=== PATIENT | male | born 1955 | race Caucasian/White ===

== ENCOUNTER 2019-08-15 10:58 | Inpatient (IN) | payer OTHER, SELFPAY ==
[2019-08-15] VITALS (15 sets, daily range): BP systolic 116–179; BP diastolic 49–91; PULSE 33–53; RESP 16–23; TEMP 36.9; O2SAT 91–97; BMI 31.6
--- NOTE | 2019-08-15 11:07 | XR_ITS ---
WS: [id number] PORTABLE CHEST HISTORY: cough COMPARISON: 08/15/2014 Lungs are clear and well expanded. No pleural effusion or pneumothorax. Cardiac size: Mildly enlarged cardiac silhouette. Mediastinum/Aorta: Mildly ectatic aorta. No osseous abnormality seen. XR/XR chest 1V portable [id number] IMPRESSION: Mild cardiomegaly. No pneumonia.
--- NOTE | 2019-08-15 11:08 | ED_ITS ---
Entered by Luz Root, acting as scribe for BonnyMaura Manju HPI - Arrhythmia/Palpitations General: Chief Complaint: General Medical Stated Complaint: LOW HR Time Seen by Provider: 08/15/19 11:06 Source: patient, RN notes reviewed and other (PCP call) Mode of arrival: ambulatory Limitations: no limitations History of Present Illness: HPI narrative: 64 yo male presents to ED with bradycardia. He had a visit with his PCP (Dr Crespo) last week because his blood pressure was elevated and he had shortness of breath. He returned today for a follow up and was sent here due to bradycardia and an irregular heart rate. The patient said takes something for anxiety and dopamine to help him sleep. For past medical history, he said last year he had his Achilles tendon reattached and has had a broken leg five years ago. He said he drinks some but does not smoke. Family history: his dad had cancer and high blood pressure. He said his dad about patient's current age. MD complaint: irregular heart beat Onset (ago): day(s) (5) Duration: constant Severity: severe Context: awoke with symptoms Arrhythmia history: other (none) Associated symptoms: Reports short of breath; Deny diaphoresis, nausea, pre-syncope, syncope or vomiting Treatments prior to arrival: other (none) Review of Systems General: Reports: other (negative unless marked) Const: Denies: fever, chills, body aches, fatigue, malaise or diaphoresis Eyes: Denies: change in vision or blurry vision ENMT: Denies: throat pain, painful swallowing, hoarseness, ear pain, ear discharge, Change in hearing or nasal discharge Card: Denies: chest pain, syncope, pre-syncope, shortness of breath on exertion or shortness of breath when lying down Resp: Reports: shortness of breath; Denies: productive cough, non-productive cough, wheezing, coughing up blood or chest congestion GI: Denies: abdominal pain, nausea, vomiting, vomiting blood, coffee grounds in vomit, diarrhea, constipation, cramping, blood in stool or black tarry stool : Denies: flank pain, difficulty urinating, painful urination, urinary frequency, urinary urgency, decreased urine ouput, urinary incontinence or blood in urine Musc: Denies: neck pain, back pain, extremity pain, extremity swelling, joint pain, joint swelling, joint warmth or joint stiffness Skin/Breast: Denies: rash, skin tenderness or yellow skin Neuro: Denies: headache, numbness in extremities, weakness in extremities, changes in sensation, lack of coordination, difficulty walking, dizziness, vertigo or confusion Endo: Denies: excessive thirst, tired all the time, cold intolerance, excessive sweating, flushing or hot flashes Fili/Lymph: Denies: easy bruising, easy bleeding, petechiae or enlarged lymph nodes All/Imm: Denies: hives, throat swelling, tongue swelling, facial swelling or acute wheezing PFSH ED PFSH: Social History Smoking and tobacco status: never smoked Physical Exam Const: COMMON NORMALS: no apparent distress, oriented x3, no limitations, healthy appearing and well nourished EXAM LIMITATIONS: no altered mental status GENERAL APPEARANCE: cooperative, well kempt and well developed ORIENTATION/CONSCIOUSNESS: Yes awake HENMT: COMMON NORMALS: normocephalic, head/scalp atraumatic, hearing grossly normal bilaterally, external ears normal, EAC's normal, external nose normal and moist oral mucous membranes HEAD & SCALP: normal to inspection, normocephalic and atraumatic FACE & SINUS: normal facial exam and face symmetric NOSE: external nose normal and nares normal EXTERNAL EAR: Yes external ears normal EXTERNAL AUDITORY CANAL: EAC's normal MOUTH: oral and palatal mucosa normal and tongue normal Eye: COMMON NORMALS: PERRL, EOMs intact bilaterally, conjunctivae normal and no scleral icterus GENERAL EYE: normal appearance of both eyes and normal light reflex CONJUNCTIVA: Yes conjunctivae normal SCLERA: sclerae normal CORNEA: Yes corneas normal PUPIL: Yes PERRL DIRECT OPHTHALMOSCOPY: Yes normal light reflex Neck/C-Spine: COMMON NORMALS: full ROM, no lymphadenopathy, supple, no m eningeal signs and no JVD GENERAL: Yes normal visual inspection and Yes trachea midline CERVICAL SPINE: Yes cervical ROM normal Chest: COMMONS NORMALS: inspection of chest normal and palpation of chest normal Resp: COMMON NORMALS: normal respiratory effort, no retractions, no use of accessory muscles and clear to auscultation bilaterally EFFORT & INSPECTION: Yes able to speak in complete sentences AUSCULTATION: clear to auscultation bilaterally Cardio: COMMON NORMALS: no JVD, S1 normal heart sound, S2 normal heart sound, no gallops, no clicks, no murmurs and no rub JUGULAR VENOUS DISTENTION: no JVD RATE: bradycardic RHYTHM: other (Irregular) HEART SOUNDS: S1 normal and S2 normal GI: COMMON NORMALS: soft to palpation, non-tender, no hepatosplenomegaly and no masses INSPECTION: Yes normal to inspection PALPATION: Yes soft and Yes no hepatosplenomegaly : COMMON NORMALS: Yes no CVA tenderness BLADDER/KIDNEY EXAM: Yes no CVA tenderness Back/Pelvis: COMMON NORMALS: no CVA tenderness, thoracic and lumbar spine normal to inspection, no thoracic nor lumbar tenderness and thoraco-lumbar ROM normal Extremity: COMMON NORMALS: normal to inspection, full ROM, normal capillary refill, no joint enlargement, no clubbing, cyanosis or edema and no calf tenderness Neuro: COMMON NORMALS: oriented x3, CN's II-XII intact bilaterally, moves all extremities, no focal motor deficits and no sensory deficits noted MENINGEAL SIGNS: Yes no meningeal signs Psych: COMMON NORMALS: mental status grossly normal, thought process normal, cooperative, affect normal, speech normal and activity/motor behavior normal APPEARANCE: Yes well kempt SPEECH: Yes normal speech THOUGHT PROCESS: normal thought process Skin: COMMON NORMALS: no rashes or lesions noted, skin turgor normal, no jaundice, no petechiae and no mottling GENERAL SKIN EXAM: no rashes or lesions noted and turgor normal Course Consultations: Consultation #1: Consulted with Dr Blue at 1130. Patient will be admitted to CSU. Time: 11:30 Vital Signs: Vital signs: Vital Signs Temperature 98.4 F 08/15/19 15:30 Pulse Rate 45 L 08/15/19 16:28 Respiratory Rate 22 H 08/15/19 16:00 Blood Pressure 171/79 08/15/19 16:00 Pulse Oximetry 97 08/15/19 16:28 MDM - Arrhythmia/Palpitations MDM Narrative: Medical decision making narrative: Arrival - with the second- degree type II AV block I called Dr. Marie who immediately presented to the ER to review the EKGs and he agrees with these findings. He agrees to evaluate for need of temporary and permanent pacemaker. In the interim we will try atropine and dopamine. The patient is asymptomatic and his blood pressure is stable currently. Differential for the symptoms are extensive including primary electrical conduction problem, acute coronary syndrome, electrolyte abnormality, amyloidosis among many others. We will continue work-up in the process is Dr. Marie determines definitive plan. Admission -patient's potassium magnesium are normal. TSH is unremarkable. I reviewed all the lab results with Dr. Marie and he is still agreeable to admission. Patient is stable on 5 mics of dopamine. Further care be dictated by Dr. Marie on an inpatient basis. Lab Data: Labs: Lab Results 08/15/19 08/15/19 08/15/19 Range/Units 11:16 11:16 11:16 WBC 5.1 (4.0-10.0) 10^3/ uL RBC 4.70 (4.1-5.3) 10^6/u L Hgb 14.8 (11.7-16.6) g/dL Hct 44.3 (42.0-52.0) % MCV 94.3 H (80-94) fL MCH 31.5 (28.0-34.0) pg MCHC 33.4 (30.0-36.0) g/dL RDW 13.1 (12.1-15.1) % Plt Count 219 (130-400) 10^3/c mm MPV 11.0 H (7.4-10.4) fL Neut % (Auto) 55.4 % Lymph % (Auto) 27.1 % [place] % (Auto) 12.3 % Eos % (Auto) 3.8 % Baso % (Auto) 1.2 % Neut # (Auto) 2.8 (1.8-7.7) 10^3/u L Lymph # (Auto) 1.4 (0.8-4.8) 10^3/u L [place] # (Auto) 0.6 (0.2-0.9) 10^3/u L Eos # (Auto) 0.2 (0.0-0.8) 10^3/u L Baso # (Auto) 0.1 (0.0-0.1) 10^3/u L Nucleated RBC % (a uto) 0 % Nucleated RBCs # 0.0 /100WBC Sodium 139 (136-145) mmol/L Potassium 4.2 (3.5-5.1) mmol/L Chloride 101 (98-107) mmol/L Carbon Dioxide 26 (22-29) mmol/L Anion Gap 16.2 (5-19) BUN 15 (8-23) mg/dL Creatinine 1.1 (0.7-1.2) mg/dL GFR Calculation 67.8 L (90-130) mL/min Glucose 97 (65-115) mg/dL Calculated Osmolal ity 284 L (285-295) mOsm/k g Calcium 9.4 (8.5-10.5) mg/dL Magnesium 2.3 (1.7-2.3) mg/dL Total Bilirubin 0.9 (0.15-1.2) mg/dL AST 22 (0-40) U/L ALT 19 (0-41) U/L Alkaline Phosphata se 111 (40-130) IU/L Creatine Kinase 125 (39-308) U/L Troponin T Baselin e 21 H (0-15) ng/mL NT-Pro-B Natriuret Pep 138 H (0-125) pg/mL Total Protein 7.0 (6.6-8.7) g/dL Albumin 4.4 (3.5-5.2) g/dL Globulin 2.6 (1.3-4.6) g/dL TSH 2.34 (0.27-4.20) uIU/ mL Urine Color (Yellow) Urine Appearance (CLEAR) Urine pH (5-7) Ur Specific Gravit y (1.005-1.030) Urine Protein (Negative) Urine Glucose (UA) (Normal) Urine Ketones (Negative) Urine Blood (Negative) Urine Nitrate (Negative) Urine Bilirubin (NEGATIVE) Urine Urobilinogen (Negative) mg/dL Ur Leukocyte Dilcia ase (Negative) Urine RBC (0-2) /hpf Urine WBC (0-5) /hpf Ur Squamous Epith Cells (0-5) Urine Bacteria (NONE) Urine Mucus 08/15/19 Range/Units 11:58 WBC (4.0-10.0) 10^3/ uL RBC (4.1-5.3) 10^6/u L Hgb (11.7-16.6) g/dL Hct (42.0-52.0) % MCV (80-94) fL MCH (28.0-34.0) pg MCHC (30.0-36.0) g/dL RDW (12.1-15.1) % Plt Count (130-400) 10^3/c mm MPV (7.4-10.4) fL Neut % (Auto) % Lymph % (Auto) % [place] % (Auto) % Eos % (Auto) % Baso % (Auto) % Neut # (Auto) (1.8-7.7) 10^3/u L Lymph # (Auto) (0.8-4.8) 10^3/u L [place] # (Auto) (0.2-0.9) 10^3/u L Eos # (Auto) (0.0-0.8) 10^3/u L Baso # (Auto) (0.0-0.1) 10^3/u L Nucleated RBC % (a uto) % Nucleated RBCs # /100WBC Sodium (136-145) mmol/L Potassium (3.5-5.1) mmol/L Chloride (98-107) mmol/L Carbon Dioxide (22-29) mmol/L Anion Gap (5-19) BUN (8-23) mg/dL Creatinine (0.7-1.2) mg/dL GFR Calculation (90-130) mL/min Glucose (65-115) mg/dL Calculated Osmolal ity (285-295) mOsm/k g Calcium (8.5-10.5) mg/dL Magnesium (1.7-2.3) mg/dL Total Bilirubin (0.15-1.2) mg/dL AST (0-40) U/L ALT (0-41) U/L Alkaline Phosphata se (40-130) IU/L Creatine Kinase (39-308) U/L Troponin T Baselin e (0-15) ng/mL NT-Pro-B Natriuret Pep (0-125) pg/mL Total Protein (6.6-8.7) g/dL Albumin (3.5-5.2) g/dL Globulin (1.3-4.6) g/dL TSH (0.27-4.20) uIU/ mL Urine Color Yellow (Yellow) Urine Appearance Clear (CLEAR) Urine pH 7 (5-7) Ur Specific Gravit y 1.005 (1.005-1.030) Urine Protein Neg (Negative) Urine Glucose (UA) Norm (Normal) Urine Ketones Negative (Negative) Urine Blood Neg (Negative) Urine Nitrate Negative (Negative) Urine Bilirubin 1+ H (NEGATIVE) Urine Urobilinogen Norm (Negative) mg/dL Ur Leukocyte Dilcia ase Negative (Negative) Urine RBC Rare (0-2) /hpf Urine WBC 0-4 H (0-5) /hpf Ur Squamous Epith Cells 0-4 H (0-5) Urine Bacteria None (NONE) Urine Mucus Trace Imaging Data^: CXR: My impression: No acute cardiopulmonary findings Radiologist's impression: [facility] [address] [place] [address] XRay Report Signed Patient: Rommel Lorenzo #: [id number] : 7Acct#:[id number] Age/Sex: 64 / MADM Date: 08/15/19 Loc: [facility]/Bed: Attending Dr: Ordering Provider/Ordering MD: Maura Draper DO Date of Service: 08/15/19 Procedure(s): XR chest 1V portable [id number] Accession Number(s): [id number] Report Number: [id number] WS: [id number] PORTABLE CHEST HISTORY: cough COMPARISON: 08/15/2014 Lungs are clear and well expanded. No pleural effusion or pneumothorax. Cardiac size: Mildly enlarged cardiac silhouette. Mediastinum/Aorta: Mildly ectatic aorta. No osseous abnormality seen. XR/XR chest 1V portable [id number] IMPRESSION: Mild cardiomegaly. No pneumonia. Dictated By:Amarilis Loco DO Signed By:Amarilis Loco DOSigned Date/Time:08/15/19 EKG Data^: EKG 1: Attestation: I personally reviewed and interpreted this EKG as follows: EKG interpretation date: 08/15/19 EKG interpretation time: 11:13 Interpretation: Sinus rhythm with first-degree AV block, right axis deviation, interventricular conduction delay, nonspecific ST and T wave changes. Other EKG comments: Chest X-Ray 08/15/19 11:07 IMPRESSION: Mild cardiomegaly. No pneumonia. EKG 2: Attestation: I personally reviewed and interpreted this EKG as follows: EKG interpretation date: 08/15/19 EKG interpretation time: 11:14 Interpretation: Sinus rhythm with second-degree AV block Mobitz 2. Interventricular conduction delay. Other EKG comments: Chest X-Ray 08/15/19 11:07 IMPRESSION: Mild cardiomegaly. No pneumonia. Discharge Plan Discharge Patient Disposition: Placed in Observation Admit Provider: Angélica Blue Clinical Impression: Mobitz type 2 second degree heart block, Bradycardia Condition: Stable Referrals: Tato Crespo MD [Primary Care Provider] - Discharge Date/Time: 08/15/19 15:20 Coding Level of Care Code ED Artificial Flowers Supervisor for Chg Fwd Exam Comprehensive The documentation recorded by the Dk walters Valerie R, accurately reflects the service I personally performed and the decisions made by Bonny green Eli N Aug 15, 2019 10:58
--- NOTE | 2019-08-15 11:08 | ECG_ITS ---
Measurements Intervals [place] Rate: 36 P: 39 NE: 311 QRS: 96 QRSD: 166 T: 5 QT: 524 QTc: 409 SINUS RHYTHM WITH MOBITZ TYPE 2 AV BLOCK RIGHT BUNDLE BRANCH BLOCK RIGHT AXIS DEVIATION CRITICAL TEST RESULT Compared to ECG 08/15/2014 20:53:20 Sinus rhythm no longer present Electronically Signed On 08-15-2019 21:29:20 CDT by Isadora May M.D. [email or web address]
[2019-08-15] MEDS: atropine 0.1 mg/mL Syr 10 mL 1 MG (11:25)
[2019-08-15 11:29] LABS: Basophils # 0.1 10^3/uL (0.0-0.1); Basophils % 1.2 %; Eosinophils # 0.2 10^3/uL (0.0-0.8); Eosinophils % 3.8 %; Hematocrit 44.3 % (42.0-52.0); Hemoglobin 14.8 g/dL (11.7-16.6); Lymphocytes # 1.4 10^3/uL (0.8-4.8); Lymphocytes % 27.1 %; Mean Corpuscular HGB Conc 33.4 g/dL (30.0-36.0); Mean Corpuscular Hemoglobin 31.5 pg (28.0-34.0); Mean Corpuscular Volume 94.3 fL (80-94); Monocytes # 0.6 10^3/uL (0.2-0.9); Monocytes % 12.3 %; Neutrophils # 2.8 10^3/uL (1.8-7.7); Neutrophils % 55.4 %; Nucleated Red Blood Cells % 0 %; Platelet Count 219 10^3/cmm (130-400); Red Cell Distribution Width 13.1 % (12.1-15.1); White Blood Count 5.1 10^3/uL (4.0-10.0)
[2019-08-15] MEDS: sodium chloride 0.9% 1,000 ML 999 ML IV (11:33)
--- NOTE | 2019-08-15 11:33 | PC.NURSE ---
Pacer pads placed on pt at this time per verbal order of ER physician.
[2019-08-15 11:44] LABS: Troponin(5th) Baseline 21 ng/mL (0-15)
[2019-08-15] MEDS: DOPamine drip 400 MG/250 ML PREMIX 15.2 MG (11:44)
[2019-08-15 11:51] LABS: Alanine Aminotransferase 19 U/L (0-41); Albumin Level 4.4 g/dL (3.5-5.2); Alkaline Phosphatase 111 IU/L (40-130); Anion Gap 16.2 (5-19); Aspartate Amino Transferase 22 U/L (0-40); Blood Urea Nitrogen 15 mg/dL (8-23); Calcium 9.4 mg/dL (8.5-10.5); Carbon Dioxide 26 mmol/L (22-29); Chloride 101 mmol/L (98-107); Creatine Phosphokinase 125 U/L (39-308); Globulin 2.6 g/dL (1.3-4.6); Glomerular Filtration Rate 67.8 mL/min (90-130); Glucose 97 mg/dL (65-115); Magnesium 2.3 mg/dL (1.7-2.3); NT Pro B Type Natriuretic Pept 138 pg/mL (0-125); Osmolality Calculated 284 mOsm/kg (285-295); Potassium 4.2 mmol/L (3.5-5.1); Sodium 139 mmol/L (136-145); Thyroid Stimulating Hormone 2.34 uIU/mL (0.27-4.20); Total Bilirubin 0.9 mg/dL (0.15-1.2)
[2019-08-15 12:39] LABS: Bilirubin Urine 1+ (NEGATIVE); Blood Urine Neg (Negative); Glucose Urine UA Norm (Normal); Ketones Urine Negative (Negative); Leukocyte Esterase Urine Negative (Negative); Nitrate Urine Negative (Negative); Protein Urine Neg (Negative); Specific Gravity, Urine 1.005 (1.005-1.030); Urine Appearance Clear (CLEAR); Urine Color Yellow (Yellow); Urobilinogen Urine Norm (Negative); pH Urine 7 (5-7)
[2019-08-15 12:46] LABS: Mucus Urine TRACE; RBC Urine RARE /hpf (0-2); Squamous Epithelial Cell Urine 0-4 (0-5); WBC Urine 0-4 /hpf (0-5)
[2019-08-15 12:47] LABS: Add Urine Culture? No
--- NOTE | 2019-08-15 13:08 | ECG_ITS ---
Measurements Intervals [place] Rate: 53 P: -18 SD: 327 QRS: 92 QRSD: 160 T: 62 QT: 518 QTc: 487 SINUS BRADYCARDIA WITH FIRST DEGREE AV BLOCK BORDERLINE RIGHT AXIS DEVIATION [QRS AXIS > 90] INTRAVENTRICULAR CONDUCTION DELAY [130+ ms QRS DURATION] POSSIBLE INFERIOR MYOCARDIAL INFARCTION [30 ms Q WAVE IN II/aVF], PROBABLY OLD Compared to ECG 08/15/2014 20:53:20 Intraventricular conduction delay now present Myocardial infarct finding now present Sinus rhythm no longer present Right bundle-branch block no longer present Electronically Signed On 08-15-2019 18:06:18 CDT by Isadora May M.D. [email or web address]
[2019-08-15] MEDS: promethazine 25 mg/mL SDV 1 mL IM (13:39)
[2019-08-15 13:42] LABS: Troponin 5 2HR 20.14 ng/mL (0-15)
[2019-08-15 13:54] LABS: Troponin 5 2HR Delta -0.86 ABS# (0-10)
--- NOTE | 2019-08-15 14:33 | P.HP_ITS ---
Providers/Chief Complaint Admitting Physician: Angélica Blue MD Primary Care Provider: Tato Crespo MD Chief Complaint: LOW HR History of Present Illness Rommel Lorenzo is a 64 year old male essentially healthy Percent except history of anxiety arthritis Presented to emergency room with shortness of breath fatigue his heart rate was in high 30s. Telemetry strip and twelve-lead EKG was suggestive of Mobitz type II heart block. His blood pressure remained stable. According to the patient for the past few month he has been progressively dealing with lack of energy and running out of breath whenever he walks. He denies any palpitation pounding presyncope or syncope. He denies chest pain PND orthopnea. He denies history of thyroid problem Electrolyte imbalance renal pr oblem. He denies history of rash Lyme disease and myocardial infarction. He does not take any [id number] medicine. He's not on tyson yt. Review of Systems General: Reports: other (negative unless marked) Const: Denies: fever, chills, body aches, fatigue, malaise or diaphoresis Eyes: Denies: change in vision or blurry vision ENMT: Denies: throat pain, painful swallowing, hoarseness, ear pain, ear discharge, change in hearing or nasal discharge Card: Denies: chest pain, syncope, pre-syncope, shortness of breath on exertion or shortness of breath when lying down Resp: Reports: shortness of breath; Denies: productive cough, non-productive cough, wheezing, coughing up blood or c hest congestion GI: Denies: abdominal pain, nausea, vomiting, vomiting blood, coffee grounds in vomit, diarrhea, constipation, cramping, blood in stool or black tarry stool : Denies: flank pain, difficulty urinating, painful urination, urinary frequency, urinary urgency, decreased urine ouput, urinary incontinence or blood in urine Musc: Denies: neck pain, back pain, extremity pain, extremity swelling, joint pain, joint swelling, joint warmth or joint stiffness Skin/Breast: Denies: rash, skin tenderness or yellow skin Neuro: Denies: headache, numbness in extremities, weakness in extremities, changes in sensation, lack of coordination, difficulty walking, dizziness, vertigo or confusion Endo: Denies: excessive thirst, tired all the time, cold intolerance, exc essive sweating, flushing or hot flashes Fili/Lymph: Denies: easy bruising, easy bleeding, petechiae or enlarged lymph nodes All/Imm: Denies: hives, throat swelling, tongue swelling, facial swelling or acute wheezing Medications/Allergies Home Medications Medication Instructions Recorded Confirmed Last Taken Type naproxen sodium [Aleve] 220 mg PO BID PRN 08/15/19 08/15/19 08/14/19 History paroxetine HCl 20 mg PO BEDTIME 08/15/19 08/15/19 08/14/19 History zolpidem 10 mg PO BEDTIME 08/15/19 08/15/19 08/14/19 History Allergies Allergy/AdvReac Type Severity Reaction Status Date / Time No Known Allergies Allergy Verified 08/15/19 11:18 PFSH Acute PFSH: Social History Smoking and tobacco status: never smoked Vitals/I&O/Wt Last Vital Signs Temp 98.4 F 08/15/19 11:15 Pulse 53 L 08/15/19 13:44 Resp 16 08/15/19 11:15 BP 176/74 08/15/19 13:44 Pulse Ox 96 08/15/19 13:44 08/14/19 08/15/19 08/15/19 22:59 06:59 14:59 Intake Total 1000 / 1000 Balance 1000 / 1000 Weight last 48 hrs Weight 240 lb Physical Exam Narrative: EXAM NARRATIVE: GENERAL: Patient is alert, awake and oriented x3. NECK: No jugular vein distension. HEENT: No cyanosis. No icterus. No pallor. HEART: Regular S1 and S2. No murmur, rub or gallop. LUNGS: Clear to auscultate bilaterally. ABDOMEN: Soft, nontender and nondistended. Positive bowel sounds. No guarding, rebound or tenderness. CENTRAL NERVOUS SYSTEM: Grossly nonfocal. EXTREMITIES: Lower extremities without edema bilaterally. Data : 08/15/19 11:16 08/15/19 11:16 A&P Assessment and plan (1) Mobitz type 2 second degree heart block: Patient has symptomatic in for his in heart block with underlying right bundle branch. His heart rate while awake stays into high 30s. He is stable vital guerrero and mentating fine. We will admit him to the hospital. We will rule out underlying coronary ischemia, left leg imbalance,, hypothyroidism and other reversible causes for arrhythmia. He may will be needing permanent pacemaker since he has been symptomatic for long period of time feels dizzy and short of breath with heart rate dropped down into 30s while awake. I will give him atropine and start him on dopamine drip. Further plan will be advised as per progress of the patient. Status: Acute Code(s): I44.1 - Atrioventricular block, second degree Attestations Medical Necessity Statement*: For now patient is 24-hour under observation. Coding Level of Care Code Established Pt Acute Inside Barrel Polisher for g Fwd Patient Type Established Medical Decision Making Moderate Complexity Diagnoses Mobitz type 2 second degree heart block I44.1
--- NOTE | 2019-08-15 14:48 | PC.NURSE ---
attempted to call report to ICU. Nurse not ready for report at this time
[2019-08-15] MEDS: atropine 0.1 mg/mL Syr 10 mL 0.5 MG IVP (16:48)
[2019-08-15] MEDS: ondansetron 2 mg/ML SDV 2 mL 4 MG IVP (17:01)
--- NOTE | 2019-08-15 17:08 | ECG_ITS ---
Measurements Intervals [place] Rate: 59 P: -13 HI: 327 QRS: 92 QRSD: 159 T: 6 QT: 509 QTc: 506 SINUS BRADYCARDIA WITH FIRST DEGREE AV BLOCK BORDERLINE RIGHT AXIS DEVIATION [QRS AXIS > 90] RIGHT BUNDLE BRANCH BLOCK Compared to ECG 08/15/2014 20:53:20 Myocardial infarct finding now present Sinus rhythm no longer present Electronically Signed On 08-15-2019 18:00:16 CDT by Isadora May M.D. [email or web address]
--- NOTE | 2019-08-15 17:14 | PM.CONSULT ---
Providers/Reason For Consult Consulting Physican/Specialty*: Dr. Gardner, cardiothoracic surgery Reason for Consult*: Mobitz type II AV block with refractory bradycardia Attending Physician: Angélica Blue MD Primary Care Provider: Tato Crespo MD History of Present Illness History of Present Illness Rommel Lorenzo is a 64 year old male who is been admitted to the ICU after presenting to the emergency department earlier today with marked and progressive dyspnea with exertion along with increasing fatigue. This is been occurring more progressively over the past few months. He was found to be in type II AV heart block with a heart rate in the 30s upon presentation. He has required a dopamine infusion as well as intermittent atropine to raise his heart rate. He has been careful evaluated by Dr. Blue. Routine issues that could be causative agents are currently being investigated though Dr. Blue feels he will most probably require pacemaker implantation. He has no known prior history for cardiac disease. No history for thyroid disease or Lyme disease exposure. Other than fatigue and dyspnea with exertion, he has no other symptoms. There is currently no echocardiogram noted though may be ordered at the discretion of Dr. Blue if warranted. Review of Systems Const: Denies: fever, chills, change in appetite, change in weight, fatigue or night sweats Eyes: Denies: change in vision or blurry vision ENMT: Denies: painful swallowing or hoarseness Card: Reports: pre-syncope and shortness of breath on exertion; Denies: chest pain, palpitations, irregular heart rhythm, edema, shortness of breath when lying down or leg pain with exertion Resp: Denies: shortness of breath or productive cough GI: Denies: abdominal pain, nausea, vomiting, difficulty swallowing, heartburn/indigestion or change in bowel habits : Denies: difficulty urinating, painful urination, urinary frequency, urinary urgency or urinary hesitancy Musc: Denies: extremity pain or extremity swelling Skin/Breast: Denies: rash Neuro: Denies: headache, numbness in extremities, weakness in extremities or changes in sensation Psych: Denies: anxiety, depression or change in appetite Endo: Denies: excessive urination, excessive thirst or cold intolerance Fili/Lymph: Denies: easy bruising, easy bleeding, petechiae or enlarged lymph nodes Meds/Allergies Home Medications and Allergies Home Medications Medication Instructions Recorded Confirmed Type naproxen sodium [Aleve] 220 mg PO BID PRN 08/15/19 08/15/19 History paroxetine HCl 20 mg PO BEDTIME 08/15/19 08/15/19 History zolpidem 10 mg PO BEDTIME 08/15/19 08/15/19 History Allergies Allergy/AdvReac Type Severity Reaction Status Date / Time No Known Allergies Allergy Verified 08/15/19 11:18 Current Medications Current Medications Generic Name Dose Route Start Last Admin Trade Name Waleska PRN Reason Stop Dose Admin Ondansetron HCl 4 mg 08/15/19 17:00 08/15/19 17:01 Zofran IVP 4 mg Q4H PRN Administration NAUSEA AND VOMITING PFSH Acute PFSH: Social History Smoking and tobacco status: never smoked Vitals/I&O/Wt Last Vital Signs Temp 98.4 F 08/15/19 15:30 Pulse 45 L 08/15/19 16:28 Resp 22 H 08/15/19 16:00 BP 171/79 08/15/19 16:00 Pulse Ox 97 08/15/19 16:28 08/15/19 08/15/19 08/15/19 06:59 14:59 22:59 Intake Total 1000 / 1000 309.667 / 1309.667 Output Total 375 / 375 Balance 1000 / 1000 -65.333 / 934.667 Weight last 48 hrs Weight 240 lb Physical Exam Const: COMMON NORMALS: oriented x3 and alert ORIENTATION/CONSCIOUSNESS: Yes oriented to person, Yes oriented to place and Yes oriented to time HENMT: COMMON NORMALS: normocephalic HEAD & SCALP: normocephalic; no cranial bruits Neck/C-Spine: COMMON NORMALS: full ROM, supple, no JVD and no carotid bruits GENERAL: Yes trachea midline CERVICAL SPINE: Yes cervical ROM normal Chest: COMMONS NORMALS: inspection of chest normal and palpation of chest normal Resp: COMMON NORMALS: normal respiratory effort, no use of accessory muscles, clear to auscultation bilaterally and percussion normal EFFORT & INSPECTION: Yes able to speak in complete sentences and Yes symmetric chest movement AUSCULTATION: clear to auscultation bilaterally PERCUSSION: percussion normal Cardio: COMMON NORMALS: no JVD, regular rate, regular rhythm, S1 normal heart sound, S2 normal heart sound, no gallops, no murmurs and no rub JUGULAR VENOUS DISTENTION: no JVD RATE: regular rate RHYTHM: regular rhythm HEART SOUNDS: S1 normal and S2 normal PERIPHERAL PULSES: radial pulses present positive bilateral 2+ Extremity: COMMON NORMALS: full ROM and no clubbing, cyanosis or edema Neuro: COMMON NORMALS: oriented x3, no focal motor deficits and no sensory deficits noted SENSORIUM/ORIENTATION: Yes alert, Yes oriented to person, Yes oriented to place and Yes oriented to time Data Imaging^: CXR: I personally reviewed and interpreted this imaging study as follows: (Chest x-ray is clear with borderline cardiomegaly. No infiltrates or effusions.) A&P Assessment and plan (1) Mobitz type 2 second degree heart block: Highly symptomatic and medically refractory bradycardia with Mobitz type II AV block and a right bundle branch block. Dr. Blue is completing investigations though feels that dual chamber pacemaker implantation is warranted. We will tentatively plan for this midday tomorrow. Rationale for this was carefully discussed with Mr. Lorenzo as well as with his who was on the phone. Several questions answered. Details and risks of the procedure reviewed. We will plan to proceed with pacemaker implantation tomorrow unless directed otherwise by Dr. Blue who will reassess Mr. Lorenzo later today. Status: Acute Code(s): I44.1 - Atrioventricular block, second degree Consult Attestations Medical Necessity Statement: Mobitz type II AV heart block with refractory highly symptomatic bradycardia Time Spent in Patient Care: Greater than 35 minutes (45 minutes) Coding Level of Care Code New Pt Acute Hose Tubing Backer for Chg Fwd Patient Type New History Detailed Exam Detailed Medical Decision Making Moderate Complexity Diagnoses Mobitz type 2 second degree heart block I44.1
--- NOTE | 2019-08-15 17:22 | PC.NURSE ---
DR FOLEY IN TO SPEAK WITH PT/ ON SPEAKERPHONE IN REGARDS TO PACEMAKER PLACEMENT.
[2019-08-15 17:33] LABS: Troponin 5 6HR 22.16 ng/mL (0-15); Troponin 5 6HR Delta 1.16 ng/L (0-12)
[2019-08-15 17:57] LABS: INR 1.02 (0.8-1.2)
--- NOTE | 2019-08-15 18:44 | USCV_ITS ---
Rommel Lorenzo Age: 64 Gender: M : 1955 Exam Date: 08/15/2019 18:54 Ordering Phys: Angélica Blue MD ([email or web address]) Technologist: Coco Goldsmith [place] [facility] [place]: bradycardia, heart block BP: 137 / 62 HR: 52 Rhythm: Sinus Technical Quality: Adequate MEASUREMENTS (Male / Female) Normal Values 2D ECHO LV Diastolic Diameter PLAX 4.3 cm 4.2 - 5.9 / 3.9 - 5.3 cm LV Systolic Diameter PLAX 3.3 cm LV Chamber Size 3.2 cm IVS Diastolic Thickness 1.4 cm 0.6 - 1.0 / 0.6 - 0.9 cm IVS Systolic Thickness 1.4 cm LVPW Diastolic Thickness 1.8 cm 0.6 - 1.0 / 0.6 - 0.9 cm LVPW Systolic Thickness 2.4 cm RV Chamber Size 3.0 cm LVOT Diameter 2.0 cm LV Ejection Fraction 2D Teich 48.2 % LV Ejection Fraction MOD 2C 67.7 % LV Ejection Fraction 2C AL 66.9 % LA Diameter 4.2 cm LA Width 3.1 cm LA Height 4.6 cm RA Width 5.4 cm RA Height 4.0 cm Aorta at Sinotubular Diameter 3.2 cm M-MODE LV Diastolic Diameter MM 5.3 cm 4.2 - 5.9 / 3.9 - 5.3 cm LV Systolic Diameter MM 3.4 cm LV Ejection Fraction MM Teich 63.6 % IVS Diastolic Thickness MM 0.9 cm 0.6 - 1.0 / 0.6 - 0.9 cm IVS Systolic Thickness MM 1.2 cm LVPW Diastolic Thickness MM 1.3 cm 0.6 - 1.0 / 0.6 - 0.9 cm LVPW Systolic Thickness MM 1.4 cm Aortic Annulus Diameter 3.6 cm LA Ao Ratio MM 1.2 MV E Point Septal Separation 0.9 cm DOPPLER AV Peak Velocity 215.0 cm/s LVOT Peak Velocity 130.0 cm/s AV Area Cont Eq vti 2.4 cm squared AV Area Cont Eq pk 2.0 cm squared MV Area PHT 5.1 cm squared Mitral E to A Ratio 1.0 MV E' Velocity 14.0 cm/s Mitral E to MV E' Ratio 8.3 Mitral E to LV E' Lateral Ratio 7.8 Mitral E to LV E' Septal Ratio 9.0 TR Peak Velocity 202.0 cm/s TR Peak Gradient 16.3 mmHg TV Peak E Velocity 51.0 cm/s Right Atrial Pressure 3.0 mmHg Pulmonary Artery Systolic Pressu 19.3 mmHg PV Peak Velocity 75.0 cm/s RV Acceleration Time 0.2 s RV Ejection Time 0.4 s RV AcT/ET 0.5 FINDINGS Left Ventricle Normal left ventricular size, systolic function and wall thickness with no regional wall motion abnormalities. Left ventricular ejection fraction is estimated at 63 %. Normal left ventricular wall thickness. Normal diastolic filling pattern. Right Ventricle The right ventricle is normal in size and function. Right Atrium The right atrium is normal in size. Left Atrium The left atrium is normal in size. Mitral Valve Structurally normal mitral valve without significant stenosis or prolapse. There is no mitral regurgitation. Aortic Valve Structurally normal aortic valve without significant sclerosis or stenosis. There is no aortic regurgitation. Tricuspid Valve Structurally normal tricuspid valve without significant stenosis or regurgitation. Pulmonary artery systolic pressure is normal. Pulmonic Valve Structurally normal pulmonic valve without significant stenosis. There is no pulmonic regurgitation. Pericardium Normal pericardium without effusion. Aorta Normal ascending aorta dimension. CONCLUSIONS 1-Normal left ventricular size, systolic function and wall thickness with no regional wall motion abnormalities. Left ventricular ejection fraction is estimated at 63 %. Normal left ventricular wall thickness. Normal diastolic filling pattern. 2-There is no pericardial effusion. 3-No significant valve abnormalities. 4-Pulmonary artery systolic pressure is within normal limits. 5-Right atrial pressure is around 5 mm of mercury. 6-There are no prior echocardiogram studies to compare. Angélica Blue MD (Electronically Signed) Final Date: 15 August 2019 20:31 S
[2019-08-15] MEDS: PARoxetine 20 mg Tablet 10 MG PO (20:37)
[2019-08-16] VITALS (24 sets, daily range): BP systolic 123–156; BP diastolic 63–91; PULSE 34–68; RESP 11–21; TEMP 36.1–37.2; O2SAT 91–100
--- NOTE | 2019-08-16 | SC_ITS ---
WS: [id number] C-ARM RADIOGRAPHS CHEST; 2 IMAGES HISTORY: PACEMAKER INSERTION COMPARISON: None available. Intraoperative imaging during cardiac pacer placement. SC/C-arm FL for CVA [id number] IMPRESSION: Intraoperative imaging during cardiac pacer placement.
[2019-08-16] MEDS: DOPamine drip 400 MG/250 ML PREMIX 20.4 MG IV (03:55)
[2019-08-16] MEDS: nitroglycerin 1 gm/inch oint Pkt 0.5 INCH TOPICAL (05:15)
[2019-08-16 05:17] LABS: Basophils # 0.1 10^3/uL (0.0-0.1); Basophils % 0.8 %; Eosinophils # 0.1 10^3/uL (0.0-0.8); Eosinophils % 1.2 %; Hematocrit 44.9 % (42.0-52.0); Hemoglobin 15.2 g/dL (11.7-16.6); Lymphocytes # 1.3 10^3/uL (0.8-4.8); Lymphocytes % 19.1 %; Mean Corpuscular HGB Conc 33.9 g/dL (30.0-36.0); Mean Corpuscular Hemoglobin 31.5 pg (28.0-34.0); Mean Corpuscular Volume 93.2 fL (80-94); Mean Platelet Volume 10.5 fL (7.4-10.4); Monocytes # 0.8 10^3/uL (0.2-0.9); Monocytes % 12.3 %; Neutrophils # 4.4 10^3/uL (1.8-7.7); Neutrophils % 66.3 %; Nucleated Red Blood Cells % 0 %; Platelet Count 221 10^3/cmm (130-400); Red Blood Count 4.82 10^6/uL (4.1-5.3); Red Cell Distribution Width 12.6 % (12.1-15.1); White Blood Count 6.6 10^3/uL (4.0-10.0)
[2019-08-16] MEDS: sodium chloride 0.9% 1,000 ML 50 ML IV (05:17)
[2019-08-16 05:35] LABS: Anion Gap 13.1 (5-19); Blood Urea Nitrogen 15 mg/dL (8-23); Calcium 9.9 mg/dL (8.5-10.5); Carbon Dioxide 30 mmol/L (22-29); Chloride 99 mmol/L (98-107); Glomerular Filtration Rate 85.5 mL/min (90-130); Glucose 126 mg/dL (65-115); Osmolality Calculated 284 mOsm/kg (285-295); Potassium 4.1 mmol/L (3.5-5.1); Sodium 138 mmol/L (136-145)
--- NOTE | 2019-08-16 05:59 | PC.NURSE ---
Patient having increased PVCs with continued decreased HR and elevated blood pressure. Notified Dr. Blue, orders received to stop Dopamine drip and place nitro paste on patient. VSS at present time. Will continue to monitor patient.
--- NOTE | 2019-08-16 06:04 | XACV_ITS ---
Exam Room: [facility] Ht: 61 cm Wt: 109 kg BSA: 1.54 m2 Gender: Male : 1955 Exam Priority: Routine Procedure(s): Procedure Description: Diagnostic procedure Procedure Description: Coronary Angiography Diagnostic Cath Status: Urgent Diagnostic Findings LM has 0% stenosis. CX has 0% stenosis. RCA has 0% stenosis. pLAD: Mild 20% stenosis, BÁRBARA: 3 flow. Coronary angiography shows right dominance. Conclusions There is mild coronary artery disease with one vessel disease. Reason for coronary angiogram: Complete heart block with symptomatic bradycardia. Recommendations Continue current medical management and risk factor modification. Proceed with permanent pacemaker. Diagnostic RX Recommendation: none Pressures Phase:Rest AO : 103 mmHg / 43 mmHg ( 63 mmHg ) @ 2:04:00 AM Clinical Evaluation EBL: 5mL-10mL Procedural Details Procedure Consent Obtained. Identified patient by full name and date of as verbalized by the patient/guarantor. Does the consent match the physician's order: Yes. Accurate & Complete Informed Consent: Yes. Inpatient/Outpatient History & Physical on Chart: Yes. If H&P is completed, is and addenduem needed: No; If yes, is the addendum complete: No. Visualize and Verify Site with Patient/Guarantor: N/A. Relevant Radiology Images available: N/A. The risks, benefits, and alternatives of sedation and/or procedure were discussed by physician. The patient agrees to continue. Procedure started. Cardiovascular Invasive Specialist Indications: Heart Block, Mobitz Type 2, Symptomatic Bradycardia. Correct patient, site and procedure confirmed by cath team. PERRLA. Strong, equal hand desktop publishing associate bilaterally. Lungs clear x 5 lobes. IV Site on Arrival: 18 gauge in the left anticubital. IV Fluids: 0.9% NaCl at KVO. 100 mL infused prior to laborer hoisting. Pre Procedural Pulses: bilateral radial was 3+. Oxygen started at 2liters/min via nasal canula. right groin was prepped with chloroprep then draped in the usual sterile fashion. right radial was prepped with chloroprep then draped in the usual sterile fashion. Physician notified. Baseline sample Acquired. HR: 31 BPM. Equipment: 6F - Radial. Cardiac Cath Pack. Careers360 Manifold Kit Model BT 2000. Heparinized Saline (2 units/mL), 1000 mL bag. Physician arrived. No family here due to current hospital policy. Physician scrubbed in. Immediate Pre-Procedure Time Out. Correct Patient: Yes; Correct Procedure: Yes; Correct Site: Yes; Correct Patient Position: Yes; Correct Supplies: Yes; Dried Flammable Prep: Yes; Blood Products Available: N/A;. Lidocaine 1% infiltrated to the right radial. AP Pads on. Arterial access obtained. A 5 citizen [place] TIG catheter in over wire. Catheter redirected to the RCA. Multiple views taken of right coronary artery. Catheter removed over the exchange wire. Physician scrubbed out. TR band placed. Hemostasis obtained. Post Procedure: Pulses reassessed and unchanged. PERRLA. Strong, equal hand desktop publishing associate bilaterally. No VTE prophylaxis required. Total IV fluids: 40.6 mL. Fluoro: 2:00. Contrast type used: Omnipaque 300 mgI/mL, 500 mL bottle. [id number]. Complications: none. Estimated blood loss: 5mL-10mL. A TR Band was successful obtaining hemostatsis at the Right Radial artery insertion site. [facility] Clinical Fraility Score: 2: Well. Cardiovascular Instability: Yes, if yes, Hemodynamic Instability. Vital chart was stopped. Medication's Wasted: Lidocaine 1% = 18 mL. Medication's Wasted: Nitro = 49.8 mg. Post-op diagnosis: Normal coronaries. Procedure completed. Patient transferred by bed to ICU. Site: Right Radial artery Sheath Size: 6 Fr Hemostasis Method: TR Band Hemostasis Success: Successful Procedure Medications Start: 6:56 AM Stop: 6:56 AM Medication: Atropine Amount: 1 mg Route: I.V. Start: 6:59 AM Stop: 6:59 AM Medication: Versed Amount: 1 mg Route: I.V. Start: 7:00 AM Stop: 7:00 AM Medication: Fentanyl Amount: 50 mcg Route: I.V. Start: 7:02 AM Stop: 7:02 AM Medication: Nitrogylcerin Amount: 200 mcg Route: I.A. Start: 7:04 AM Stop: 7:04 AM Medication: Heparin Amount: 5000 units Route: I.V. I, the attending physician, have reviewed and verified all procedure medications. Yes, all medications given per verbal order History/Risk Factors Hypertension: No Dyslipidemia: No Peripheral Arterial Disease (PAD): No Myocardial Infarction ([place]): No Obesity: No Renal Disease: No Prior Interventions PCI: No CABG: No Valve Surgery: No Report Signatures Finalized by:Angélica Blue MD on 09/01/2019 5:59:22 PM
--- NOTE | 2019-08-16 06:25 | PC.NURSE ---
Patient to [facility] with staff members in stable condition via wheelchair.
--- NOTE | 2019-08-16 06:32 | P.PN_ITS ---
Subjective Subjective: Interval history: Sleeping on rounds this morning. Heart rate was 29. Vitals/I&O/Wt Last Vital Signs Temp 98.4 F 08/15/19 15:30 Pulse 47 L 08/16/19 06:00 Resp 13 08/16/19 06:00 BP 124/67 08/16/19 06:00 Pulse Ox 98 08/16/19 06:00 08/15/19 08/15/19 08/16/19 14:59 22:59 06:59 Intake Total 1000 / 1000 309.667 / 1309.667 23.12 / 1332.787 Output Total 1525 / 1525 1600 / 3125 Balance 1000 / 1000 -1215.333 / -215.333 -1576.88 / -1792.213 Weight last 48 hrs Weight 240 lb Data : 08/16/19 04:52 08/16/19 04:52 A&P Assessment and plan (1) Mobitz type 2 second degree heart block: Mobitz type II AV block. Symptomatic bradycardia. Patient scheduled for cardiac catheterization by Dr. Blue this morning. He is tentatively scheduled for dual-lead pacemaker implantation later today pending results of the cardiac catheterization. Status: Acute Code(s): I44.1 - Atrioventricular block, second degree Attestations Medical Necessity Statement*: Highly symptomatic, medically refractory bradycardia with Mobitz type II AV block and bundle branch block. Coding Level of Care Code Acute Compl[facility] Diagnoses Mobitz type 2 second degree heart block I44.1
--- NOTE | 2019-08-16 06:56 | PC.NURSE ---
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 REPORT RECEIVED FROM HS NURSE.
--- NOTE | 2019-08-16 07:21 | P.PN_ITS ---
Subjective Subjective: Interval history: Continues to have heart rate into 30s with high degree Mobitz type II heart block despite of dopamine and atropine use. He has been ruled out for reversible causes. He underwent left heart cath this morning coronary arteries are normal. Medications: Reviewed: Yes Vitals/I&O/Wt Last Vital Signs Temp 98.4 F 08/15/19 15:30 Pulse 47 L 08/16/19 06:00 Resp 13 08/16/19 06:00 BP 124/67 08/16/19 06:00 Pulse Ox 98 08/16/19 06:00 08/15/19 08/16/19 08/16/19 22:59 06:59 14:59 Intake Total 309.667 / 1309.667 23.12 / 1332.787 Output Total 1525 / 1525 1600 / 3125 Balance -1215.333 / -215.333 -1576.88 / -1792.213 Weight last 48 hrs Weight 240 lb Physical Exam Narrative: EXAM NARRATIVE: GENERAL: Patient is alert, awake and oriented x3. NECK: No jugular vein distension. HEENT: No cyanosis. No icterus. No pallor. HEART: IRegular S1 and S2. No murmur, rub or gallop. LUNGS: Clear to auscultate bilaterally. ABDOMEN: Soft, nontender and nondistended. Positive bowel sounds. No guarding, rebound or tenderness. CENTRAL NERVOUS SYSTEM: Grossly nonfocal. EXTREMITIES: Lower extremities without edema bilaterally. Pulses palpable in the lower extremities, both dorsalis pedis and posterior tibial. Data : 08/16/19 04:52 08/16/19 04:52 A&P Assessment and plan (1) Mobitz type 2 second degree heart block: Infrahisian Mobitz type II heart block with right bundle branch. Patient continues to have symptomatic bradycardia with heart rate of high 30s while awake. He has been on dopamine for the last 12 hrs. He has been ruled out of reversible causes. Coronary angiogram morning revealed normal coronaries. We appreciate Dr. Gardner's consult and input. Patient is scheduled for permanent pacemaker placement which is recommended today. Patient has been explained all risk benefit and alternative for the procedure. He would like to proceed with it. Status: Acute Code(s): I44.1 - Atrioventricular block, second degree (2) Essential hypertension: Most likely secondary to dopamine. Continue to monitor. Hydralazine and nitroglycerin as needed use. Status: Acute Code(s): I10 - Essential (primary) hypertension Attestations Medical Necessity Statement*: Patient require continuation hospitalization for permanent pacemaker. 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
--- NOTE | 2019-08-16 10:31 | P.ANESASSM_ITS ---
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 Proposed Procedure: Operation Date: 08/16/19 06:00 Proposed Procedures p Cardiac Catheterization(Not Applicable) - Angélica Blue MD Operation Date: 08/16/19 10:35 Proposed Procedures p Pacemaker Insertion(Not Applicable) - Davis Gardner MD Familial anesthetic complications: No trouble Was Beta Clarisse taken within 24 hours: N/A Social: Social History: No alcohol and No tobacco Exam: Pre-Anes Outpt Exam: alert, oriented x 3, clear to auscultation bilate rally and regular rate & rhythm Airway: Cervical ROM: WNL MP: 4 Additional comments: upper plate Pulmonary: Pulmonary: Sleep apnea CV/HEM: CV/HEM: Arrythmia : : None reported Hepatic: Hepatic: None reported GI: GI: None reported Metabolic: Metabolic: None reported Musc/skel: Musc/skel: None reported Neuropsych: Neuropsych: None reported Anesthetic Plan: ASA status: 3 Anesthesia: MAC Risk of > 500 ml blood loss (7ml/kg in children): No Meds/Allergies Current Medications: Current Medications Generic Name Dose Route Start Last Admin Trade Name Freq PRN Reason Stop Dose Admin Dopamine HCl/Dextr ose 400 mg in 250 mls @ 20.412 mls/hr 08/15/19 12:30 08/16/19 05:03 Intropin Drip IV 0 mcg/kg/min CONT ELIZABETH 0 mls/hr Titration Protocol 5 MCG/KG/MIN Sodium Chloride 1,000 mls @ 50 ml s/hr 08/16/19 06:00 08/16/19 05:17 Sodium Chloride 0.9% IV 08/17/19 01:59 50 mls/hr .Q20H ONE Administration Nitroglycerin 0.5 inch 08/16/19 05:15 08/16/19 05:15 Nitro-Bid TOPICAL 0.5 inch Q6H ELIZABETH Administration Ondansetron HCl 4 mg 08/15/19 17:00 08/15/19 17:01 Zofran IVP 4 mg Q4H PRN Administration NAUSEA AND VOMITI NG Paroxetine HCl 10 mg 08/15/19 20:15 08/15/19 20:37 Paxil PO 10 mg ONCE ELIZABETH Administration PFSH Anesthesia PFSH: Social History Smoking and tobacco status: never smoked Data Anesthesia CBC & Chem 7: 08/16/19 04:52 08/16/19 04:52 Other Labs: Laboratory Results - last 48 hr 08/15/19 08/15/19 08/15/19 11:16 11:16 11:16 WBC 5.1 RBC 4.70 Hgb 14.8 Hct 44.3 MCV 94.3 H MCH 31.5 MCHC 33.4 RDW 13.1 Plt Count 219 MPV 11.0 H Neut % (Auto) 55.4 Lymph % (Auto) 27.1 Maverick % (Auto) 12.3 Eos % (Auto) 3.8 Baso % (Auto) 1.2 Neut # (Auto) 2.8 Lymph # (Auto) 1.4 Maverick # (Auto) 0.6 Eos # (Auto) 0.2 Baso # (Auto) 0.1 Nucleated RBC % (auto) 0 Nucleated RBCs # 0.0 PT INR Sodium 139 Potassium 4.2 Chloride 101 Carbon Dioxide 26 Anion Gap 16.2 BUN 15 Creatinine 1.1 GFR Calculation 67.8 L Glucose 97 Calculated Osmolality 284 L Calcium 9.4 Magnesium 2.3 Total Bilirubin 0.9 AST 22 ALT 19 Alkaline Phosphatase 111 Creatine Kinase 125 Troponin I 6 Hour Troponin I Hi Sens Del Troponin T Baseline 21 H Troponin T 120 Minute Delta Troponin T NT-Pro-B Natriuret Pep 138 H Total Protein 7.0 Albumin 4.4 Globulin 2.6 TSH 2.34 Urine Color Urine Appearance Urine pH Ur Specific [place] Urine Protein Urine Glucose (UA) Urine Ketones Urine Blood Urine Nitrate Urine Bilirubin Urine Urobilinogen Ur Leukocyte Esterase Urine RBC Urine WBC Ur Squamous Epith Cells Urine Bacteria Urine Mucus 08/15/19 08/15/19 08/15/19 11:58 13:08 17:10 WBC RBC Hgb Hct MCV MCH MCHC RDW Plt Count MPV Neut % (Auto) Lymph % (Auto) [place] % (Auto) Eos % (Auto) Baso % (Auto) Neut # (Auto) Lymph # (Auto) Maverick # (Auto) Eos # (Auto) Baso # (Auto) Nucleated RBC % (auto) Nucleated RBCs # PT INR Sodium Potassium Chloride Carbon Dioxide Anion Gap BUN Creatinine GFR Calculation Glucose Calculated Osmolality Calcium Magnesium Total Bilirubin AST ALT Alkaline Phosphatase Creatine Kinase Troponin I 6 Hour 22.16 H Troponin I Hi Sens Del 1.16 Troponin T Baseline Troponin T 120 Minute 20.14 H Delta Troponin T -0.86 L NT-Pro-B Natriuret Pep Total Protein Albumin Globulin TSH Urine Color Yellow Urine Appearance Clear Urine pH 7 Ur Specific [place] 1.005 Urine Protein Neg Urine Glucose (UA) Norm Urine Ketones Negative Urine Blood Neg Urine Nitrate Negative Urine Bilirubin 1+ H Urine Urobilinogen Norm Ur Leukocyte Esterase Negative Urine RBC Rare Urine WBC 0-4 H Ur Squamous Epith Cells 0-4 H Urine Bacteria None Urine Mucus Trace 08/15/19 08/16/19 08/16/19 17:10 04:52 04:52 WBC 6.6 RBC 4.82 Hgb 15.2 Hct 44.9 MCV 93.2 MCH 31.5 MCHC 33.9 RDW 12.6 Plt Count 221 MPV 10.5 H Neut % (Auto) 66.3 Lymph % (Auto) 19.1 Maverick % (Auto) 12.3 Eos % (Auto) 1.2 Baso % (Auto) 0.8 Neut # (Auto) 4.4 Lymph # (Auto) 1.3 Maverick # (Auto) 0.8 Eos # (Auto) 0.1 Baso # (Auto) 0.1 Nucleated RBC % (auto) 0 Nucleated RBCs # 0.0 PT 13.40 H INR 1.02 Sodium 138 Potassium 4.1 Chloride 99 Carbon Dioxide 30 H Anion Gap 13.1 BUN 15 Creatinine 0.9 GFR Calculation 85.5 L Glucose 126 H Calculated Osmolality 284 L Calcium 9.9 Magnesium Total Bilirubin AST ALT Alkaline Phosphatase Creatine Kinase Troponin I 6 Hour Troponin I Hi Sens Del Troponin T Baseline Troponin T 120 Minute Delta Troponin T NT-Pro-B Natriuret Pep Total Protein Albumin Globulin TSH Urine Color Urine Appearance Urine pH Ur Specific [place] Urine Protein Urine Glucose (UA) Urine Ketones Urine Blood Urine Nitrate Urine Bilirubin Urine Urobilinogen Ur Leukocyte Esterase Urine RBC Urine WBC Ur Squamous Epith Cells Urine Bacteria Urine Mucus Cardiac Studies: No Data to Display
--- NOTE | 2019-08-16 12:45 | PC.NURSE ---
OR STAFF, ERICK & ELI HERE TO TRANSFER TO OR FOR PACER PLACEMENT. WISHED WELL.
[2019-08-16] MEDS: lidocaine 1% INJ 20 mL SUBCUT (13:21)
[2019-08-16] MEDS: ceFAZolin 1,000 mg SDV 1000 MG IRRIGATION (13:21)
--- NOTE | 2019-08-16 13:44 | SUR.OPER ---
1335 - Pt's , Arlene, notified of surgery start via her cell phone.
--- NOTE | 2019-08-16 14:24 | PM.OP ---
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 He has Mobitz type II AV heart block with a right bundle. Left heart catheterization earlier today revealed no obstructive coronary disease. Dual-lead pacemaker implantation has been recommended by Dr. Blue. Details the risk of the procedure were carefully and frankly discussed. Proper consents have been reviewed and signed. Procedure: Procedure: Patient was taken to the OR suite and placed in the supine position over a shoulder roll. He received conscious sedation with continuous anesthesia monitoring by. His entire chest was sterilely prepped and draped. 1% lidocaine was infiltrated in the left subclavicular region. While in Trendelenburg position, utilizing modified seldinger technique, 2 guidewires were placed in the left subclavian vein. This was confirmed in position by fluoroscopy. Next, after infiltration with lidocaine, a subcutaneous pocket was created beginning from the exit point of the guidewire and extending laterally and inferiorly. Cautery was utilized to create the pocket just above the pectoralis musculature. Hemostasis was confirmed. An antibiotic-soaked sponge was placed in the wound. A dilator and tear-away sheath was placed over the first guidewire and advanced under fluoroscopy. Guidewire and dilator were removed. Next using a combination of curved and straight stylettes, the right ventricular lead was placed in position by fluoroscopy. The distal screw was extended. Interrogation was then performed confirming appropriate parameters. The tear-away sheath was then removed and the ventricular lead was sewn to the floor of the subcutaneous pocket. In a similar fashion dilator and tear-away sheath was placed over the 2nd guide wire and advanced under fluoroscopy. Guidewire and dilator were removed. Straight and curved stylettes were used to position the right atrial lead with fluoroscopy. Distal screw was extended. Interrogation was then performed. Tear-away sheath was then removed. Atrial lead was secured to the floor of the subcutaneous pocket. Pocket was irrigated with antibiotic solution and hemostasis again confirmed. Pacing generator was brought into the field, and after confirmation of hemostasis in the subcutaneous pocket, the leads were connected to the generator with appropriate capture. The entire system was interrogated by fluoroscopy. Leads and generator were secured in the pocket. Sponge and needle count was correct. The wound was then closed in 2 layers of 3-0 Vicryl suture. Skin was reapproximated in a subcuticular manner with 4-0 Monocryl suture. A pressure dressing was applied. The left arm was placed in a sling. He had equal breath sounds bilaterally. He was then transferred back to the ICU, where chest x-ray is currently pending. His was notified by phone of completion of the procedure. Following are the specifics of this system: Right ventricular lead is 58 cm and model 5076. Serial number [id number] Right atrial lead is 52 cm and is model 5076. Serial number [id number]. Ventricular lead had sensing of 7.5 mV with an impedance of 790 ohms. Threshold was 0.7 V Atrial lead had sensing of 2.4 mV with an impedance of 510 ohms. Threshold was 0.75 V. [employer] generator: Model #[id number] Serial # [id number]
--- NOTE | 2019-08-16 14:25 | XR_ITS ---
WS: [id number] PORTABLE CHEST HISTORY: s/p pacemaker implant COMPARISON: 08/15/2019 Interval placement of a dual lead LEFT subclavian pacer. No pneumothorax. No mediastinal widening. Lungs are clear and well expanded. No pleural effusion or pneumothorax. Cardiac size: Mildly enlarged cardiac silhouette. Mediastinum/Aorta: Mildly ectatic aorta. No osseous abnormality seen. XR/XR chest 1V portable [id number] IMPRESSION: Interval placement of a LEFT subclavian dual lead pacer. No complications.
--- NOTE | 2019-08-16 14:30 | SUR.PHASEII ---
RECOVERED FOR 30 MINUTES. RECEIVED AT 1430 FROM OR, ALERT/DROWSY, O2 PER NC, DRESSING C/D/I, IMMOBILIZER IN PLACE. DENIES PAIN. ASKS THAT I CALL HIS & LET HER KNOW THAT HE IS DOING OK.
[2019-08-16] MEDS: amlodipine 5 mg Tablet PO (20:07)
[2019-08-16] MEDS: PARoxetine 20 mg Tablet PO (20:11)
[2019-08-16] MEDS: ceFAZolin 1,000 MG in sodium chloride 0.9% (plus) 50 ML 100 MG IV (21:04)
[2019-08-16] MEDS: sodium chloride 0.9% 100 ML 30 ML (21:20)
[2019-08-17] VITALS (7 sets, daily range): BP systolic 128–152; BP diastolic 81–92; PULSE 60–70; RESP 18–21; TEMP 36.8–36.9; O2SAT 95–97
[2019-08-17] MEDS: ceFAZolin 1,000 MG in sodium chloride 0.9% (plus) 50 ML 100 MG IV (05:34)
[2019-08-17] MEDS: nitroglycerin 1 gm/inch oint Pkt 0.5 INCH TOPICAL (05:43)
--- NOTE | 2019-08-17 07:44 | ECG_ITS ---
Measurements Intervals [place] Rate: 60 P: 255 WA: 180 QRS: -72 QRSD: 196 T: 99 QT: 547 QTc: 547 ELECTRONIC ATRIAL PACEMAKER ELECTRONIC VENTRICULAR PACEMAKER ABNORMAL RHYTHM ECG Compared to ECG 08/15/2019 16:36:50 Sinus bradycardia no longer present First degree AV block no longer present Right bundle-branch block no longer present Electronically Signed On 08-17-2019 9:45:05 CDT by Isadora May M.D. [email or web address]
--- NOTE | 2019-08-17 08:32 | PM.PN ---
Subjective Subjective: Interval history: No complaints. Up in chair on rounds. States he feels quite well. Minimal incisional discomfort. Heart rate is 60 or greater and appears to be dual-chamber paced. Awaiting interrogation this morning. Vitals/I&O/Wt Last Vital Signs Temp 98.5 F 08/17/19 06:00 Pulse 60 08/17/19 06:00 Resp 20 H 08/17/19 04:00 BP 152/87 08/17/19 06:00 Pulse Ox 97 08/17/19 06:00 08/16/19 08/17/19 08/17/19 22:59 06:59 14:59 Intake Total 657 / 1057 290 / 1347 420 / 420 Balance 657 / 807 290 / 1097 420 / 420 Weight last 48 hrs Weight 240 lb Physical Exam Chest: OTHER: Incision clean and dry. No swelling or evidence for seroma or hematoma. Data : 08/16/19 04:52 08/16/19 04:52 A&P Assessment and plan (1) Status post cardiac pacemaker procedure: Postop #1 status post dual-chamber pacemaker implantation. We will plan to discharge to home today with follow-up in heart care services at the pacemaker clinic in 1 week. Status: Acute Code(s): Z95.0 - Presence of cardiac pacemaker Attestations Medical Necessity Statement*: Mobitz type II AV block with highly refractory symptomatic bradycardia, status post pacemaker implantation Time Spent in Patient Care: less than 15 minutes Coding Level of Care Code Acute Cardiology Clinical Nurse Specialist for Semaj Fwd Diagnoses Status post cardiac pacemaker procedure Z95.0
--- NOTE | 2019-08-17 08:41 | PM.DCS ---
Discharge Providers Date of Admission: 08/15/19 14:46 Date of Discharge: August 17, 2019 Attending Provider at Admission: Angélica Blue MD Attending Provider at Discharge: Angélica Blue MD Primary Care Provider: Tato Crespo MD Diagnoses at Discharge Discharge Diagnosis (1) Status post cardiac pacemaker procedure: Status: Acute Reason for Visit Reason for Visit: Reason For Visit: LOW HR Hospital Course Hospital Course: Mr. Lorenzo was admitted after presentation to the ER with low heart rate in the low 30s. He was found to be in Mobitz type II AV block with a bundle branch block. He required ICU admission and dopamine to maintain heart rate into the 40s. Very symptomatic. He underwent left heart catheterization by Dr. Blue which revealed no obstructive coronary disease. Dr. Gardner was consulted and placed a dual-chamber pacemaker yesterday. He has done well since. Shows excellent capture. Incision clean and dry. He states he feels much improved. He will be discharged home today in stable condition with scheduled follow-up at [facility] clinic in 1 week. Physical Exam Chest: OTHER: Incision site is clean and dry. No evidence for hematoma or seroma. No evidence for infection. Discharge Data Data Completed and Pending: Completed Studies During Hospitalization Category Date Time Status XR chest 1V renata ble [id number] Routine Exams 08/16/19 14:25 Completed XR chest 1V renata ble [id number] Stat Exams 08/15/19 11:07 Completed US echo complete [CV echo complete* [id number]] Stat Ultrasound 08/15/19 18:44 Completed Pending at discharge Category Date Time Status RIDES ATTENDANT request for service Routin e Exams 08/16/19 06:04 Taken Procedures Performed: Left heart catheterization by Dr. Blue, August 16, 2019 Dual-chamber pacemaker implantation by Dr. Gardner, August 16, 2019 Vitals: Last Vital Signs Temp 98.5 F 08/17/19 06:00 Pulse 60 08/17/19 06:00 Resp 20 H 08/17/19 04:00 BP 152/87 08/17/19 06:00 Pulse Ox 97 08/17/19 06:00 Discharge Plan Discharge Condition: Stable Prescriptions: New hydrocodone-acetaminophen 5-325 mg Tablet 1 tab PO Q6H PRN (Reason: Moderate Pain) Qty: 15 RF: 0 Continued paroxetine HCl 20 mg tablet 20 mg PO BEDTIME RF: 0 zolpidem 10 mg tablet 10 mg PO BEDTIME RF: 0 Aleve 220 mg Capsule 220 mg PO BID PRN (Reason: Pain) RF: 0 Discharge Orders: Discharge Order (Routine); Ordered 08/17/19 Ordered By: Davis Gardner Referrals: [facility] [Provider Group] - 1 week (Pacemaker clinic for incision inspection and generator interrogation) Tato Crespo MD [Primary Care Provider] - Discharge Diet: Usual diet Discharge Activity: Limit activity as instructed Activity Restrictions/Additional Instructions: May begin showers on Monday, August 18 No swimming or tub baths x2 weeks Do not lift left arm above eye level Report any redness, swelling, drainage, or fever Discharge Attestations Time Spent in Discharge Care*: less than 30 min Specific Discharge Activities: Specific discharge activities: educating patient and documenting/other paperwork Status at Discharge: Cognitive status at discharge: cognitively intact, Functional status at discharge: independent ambulation Overall status at discharge: patient is back to baseline Quality Metrics Clinical Quality Measures During this hospital stay, did patient experience: None Coding Level of Care Code Acute Facilities Administrator for Chg Fwd Diagnoses Status post cardiac pacemaker procedure Z95.0
--- NOTE | 2019-08-17 10:10 | ANE.PACU2 ---
 Inpatient post-anesthesia follow up: Airway intact: Yes Vital signs: Temperature 98.5 F Pulse Rate 60 Respiratory Rate 20 Blood Pressure [Le ft Arm] 130/81 Blood Pressure 152/87 Pulse Oximetry 97 Oxygen Delivery Me thod [ Nasal Cannula Current Rate & Del syed] Oxygen Delivery Me thod Room Air Oxygen Flow Rate [ Current Rate 2 & Delivery] Oxygen Flow Rate 4 Fraction of Inspir ed Oxygen Hydration adequate: Yes Nausea and vomiting: No Pain level: 2 Mental status: Baseline
--- NOTE | 2019-08-17 12:08 | PC.NURSE ---
AMLODIPINE 5MG PO DAILY #30, NR PER DR FOLEY CALLED TO [facility] [phone]
== END 2019-08-17 12:30 | disposition home or self-care (01) | DRG 244 ==
LOC: ER 12:56 → ICU 14:53
PROVIDERS: Thoracic Surgery (Cardiothoracic Vascular Surgery); Admitting Provider Internal Medicine Cardiovascular Disease; Emergency Provider Emergency Medicine; Family Provider Family Medicine; PCP Family Medicine; Visit Provider Internal Medicine Cardiovascular Disease
PROC: 0JH606Z Insertion of Pacemaker, Dual Chamber into Chest Subcutaneous Tissue and Fascia, Open Approach (ICD-10-PCS; principal; 2019-08-16 10:15)
DX: I44.1 Atrioventricular block, second degree (principal); I10 Essential (primary) hypertension
CPT/HCPCS: 12345; 36415; 71045; 77001; 80048; 80053; 81001; 82550; 83735; 83880; 84443; 84484; 85025; 85610; 93005; 93306; 93454; 96365; 96374; 96375; 99284; C1769; C1779; C1786; C1887; C1894; C1898; G0378; J0461; J0690; J1265; J1644; J2001; J2250; J2405; J2550; J2704; J3010; J3490; J7030; Q9967

== ENCOUNTER → 2019-08-23 11:45 | Outpatient (BNVA) | payer OTHER, SELFPAY | PROVIDERS: Family Provider Family Medicine; PCP Family Medicine; Visit Provider Nurse Practitioner Family | DX: I10 Essential (primary) hypertension (principal); Z95.0 Presence of cardiac pacemaker | CPT/HCPCS: 80048 ==

== ENCOUNTER 2022-05-02 16:26 | Outpatient (CLI) | payer OTHER, SELFPAY ==
--- NOTE | 2022-05-02 16:48 | CT_ITS ---
WS: [id number] CT CHEST ANGIOGRAPHY WITH REFORMATS HISTORY: ELEVATED D-DIMER, DYSPNEA TECHNIQUE: Contiguous axial images are obtained through the chest during arterial injection of intrav enous contrast. Images are reconstructed to evaluate the pulmonary arteries. MIP imaging also reviewe d. All CT scans at [facility] use at least one of these dose optimization techniques: automat ed exposure control; mA and/or kV adjustment per patient size (includes targeted exams where dose is matched to clinical indication); or iterative reconstruction. CONTRAST: Omnipaque 350; 95 mL IV. DLP: 575.80 mGy.cm COMPARISON: None available. Very good opacification of the pulmonary arteries. No pulmonary embolism is identified. There are no filling defects within the pulmonary arteries. Mildly ectatic thoracic aorta. Mild aneurysmal dilatat ion of the ascending aorta to 4.7 cm. The descending aorta tapers normally. Mild LEFT heart enlargeme nt. No LEFT atrial filling defect. No RIGHT heart strain. No pneumonia or pulmonary mass. No pleural effusions. There are numerous mediastinal and hilar lymph nodes. Some these lymph nodes do contain calcifications suggesting they are benign. Largest lymph nod es measuring up to 10 mm. No axillary adenopathy. Mild hepatic steatosis. Gallbladder is contracted. No adrenal mass. Mild incompletely visualized cent ral mesenteric misting. Increase in thoracic kyphosis. No bone destruction. Several lymph nodes in the mid upper abdomen near the celiac axis. Lymph nodes measuring 2.3 x 2.3 cm . There is a central calcification. CT/CT angio chest PE protcl [id number] IMPRESSION: 1. No pulmonary embolism. 2. Mild ascending thoracic aortic aneurysm at 4.7 cm. 3. Numerous but small mediastinal and hilar lymph nodes. Majority of these lym ph nodes contain central calcifications suggesting benign etiology. The largest lymph nodes measure up to 10 mm. 4. Hepatic steatosis. 5. Several enlarged lymph nodes in the upper abdomen just above the celiac axi s. The largest cluster measures 2.3 x 2.3 cm. These may be of benign etiology. Recommend additional evaluation to exclude a malignant process.
[2022-05-02 17:11] LABS: Blood Urea Nitrogen 11 mg/dL (8-23); Glomerular Filtration Rate 55.4 mL/min (90-130)
[2022-05-02] MEDS: iohexol 350 mg/mL 100 mL Btl IV (17:22)
== END 2022-05-02 16:27 | disposition home or self-care (01) ==
PROVIDERS: PCP Family Medicine; Visit Provider Family Medicine
DX: R06.09 Other forms of dyspnea (principal)
CPT/HCPCS: 71275; 82565; 84520; Q9967

== ENCOUNTER 2022-05-26 13:47 | Outpatient (CLI) | payer OTHER, SELFPAY | END 2022-05-26 13:48 | disposition home or self-care (01) | PROVIDERS: PCP Family Medicine; Visit Provider Family Medicine | DX: R06.09 Other forms of dyspnea (principal) | CPT/HCPCS: 94010; 94726; 94729 ==

== ENCOUNTER 2022-05-27 14:25 | Outpatient (CLI) | payer OTHER, SELFPAY ==
--- NOTE | 2022-05-27 14:35 | CTR_ITS ---
PROCEDURE INFORMATION: Exam: CT Abdomen And Pelvis With Contrast Exam date and time: 05/27/2022 4:03 PM Age: 67 years old Clinical indication: Abnormal findings; Abnormal radiologic finding of the abdomen; Radiologic exam and body structure: Cta chest; Prior surgery; Patient HX: Prostate CA; Additional info: Celiac lymphadenopathy TECHNIQUE: Imaging protocol: Computed tomography of the abdomen and pelvis with contrast. Radiation optimization: All CT scans at this facility use at least one of these dose optimization techniques: automated exposure control; mA and/or kV adjustment per patient size (includes targeted exams where dose is matched to clinical indication); or iterative reconstruction. Contrast material: OMNI 350; Contrast volume: 95 ml; Contrast route: INTRAVENOUS (IV); Other contrast: Oral, omni 350, 20 ; COMPARISON: CT angio chest PE protcl [id number] 05/02/2022 5:16 PM RADIATION DOSE METRICS: Total DLP (mGy-cm): 1179.03 FINDINGS: Lungs: The visualized portions of the lung bases are normal. Unchanged mild cardiomegaly. Pacemaker leads are seen in the right side of the heart. Tiny calcified lymph nodes are seen in the lower para soft ill region. Liver: Unchanged otjg-cr-huourrwg fatty infiltration of the liver. No mass. Gallbladder and bile ducts: The gallbladder is not distended. A 1 x 1.3 cm gallstone is seen. No gallbladder wall thickening. No biliary ductal dilatation. Pancreas: Unremarkable CT appearance of the pancreatic parenchyma. No ductal dilatation. Spleen: Normal splenic parenchymal attenuation. No splenomegaly. Adrenal glands: Normal CT appearance of the adrenals. No mass. Kidneys and ureters: No contour deforming renal masses. Right kidney mid zone 0.2 x 0.2 cm calculi are seen (2). Left kidney mid zone 0.5 x 0.5 cm and 0.1 x 0.1 cm calculi are seen. No hydronephrosis, ureterectasis or ureteral calculi. Stomach and bowel: The contrast opacified stomach appears normal. The noncontrast opacified small bowel loops appear unremarkable. The noncontrast opacified loops of colon in the abdomen and pelvis show mild constipation. Mild sigmoid colonic diverticulosis is seen, without CT evidence of diverticulitis. Appendix: No CT evidence of appendicitis. Intraperitoneal space: No abdominal ascites. No free air. Some benign phleboliths seen in the pelvis. Unchanged mid mesentery fat stranding is seen with some tiny subcentimeter lymph nodes. Vasculature: No abdominal aortic aneurysm. Inferior vena cava and portal vein appear unremarkable. Lymph nodes: No para-aortic, aortocaval or periportal enlarged lymph nodes. Unchanged enlarged celiac axis lymph nodes are seen, the largest measuring 2.3 x 2.3 cm (series 3, image 19). Urinary bladder: No bladder debris. No wall thickening. Reproductive: Status post prior prostatectomy. Bones/joints: Medium-sized anterolateral degenerative osteophytes are seen throughout the lumbar spine. No fractures. There is generalized osteopenia. Gqyn-la-[id number] bilateral hip degenerative changes. Moderate bilateral sacroiliac joint degenerative changes. Soft tissues: Small bilateral inguinal hernias are seen, containing peritoneal fat. CT/CT abdomen pelvis w con* [id number] IMPRESSION: 1. Unchanged enlarged celiac axis lymph nodes, as noted above. 2. Unchanged ugrq-hj-hwrggwda fatty infiltration of the liver. 3. Punctate bilateral intrarenal calculi, as noted above. No hydronephrosis or ureterectasis.
[2022-05-27] MEDS: iohexol 350 mg/mL 500 mL Btl (per mL) PO (15:07)
[2022-05-27] MEDS: iohexol 350 mg/mL 500 mL Btl (per mL) IV (15:07)
== END 2022-05-27 14:26 | disposition home or self-care (01) ==
LOC: RAD 14:26
PROVIDERS: PCP Family Medicine; Visit Provider Family Medicine
DX: R59.0 Localized enlarged lymph nodes (principal); N20.0 Calculus of kidney
CPT/HCPCS: 74177; Q9967

== ENCOUNTER 2022-07-12 07:49 | Outpatient (CLI) | payer OTHER, SELFPAY ==
--- NOTE | 2022-07-12 08:00 | USCV_ITS ---
Rommel Lorenzo Age: 67 Gender: M : 1955 Exam Date: 07/12/2022 08:13 Ordering Phys: Tato Crespo MD Technologist: Tomer Esparza [place] [facility] [place]: exertional dyspnea/ cardiac sarcoidosis BP: 150 / 86 HR: 83 Rhythm: Sinus Technical Quality: Adequate MEASUREMENTS (Male / Female) Normal Values 2D ECHO LV Diastolic Diameter PLAX 6.0 cm 4.2 - 5.9 / 3.9 - 5.3 cm LV Systolic Diameter PLAX 4.3 cm IVS Diastolic Thickness 1.0 cm 0.6 - 1.0 / 0.6 - 0.9 cm IVS Systolic Thickness 1.5 cm LVPW Diastolic Thickness 1.0 cm 0.6 - 1.0 / 0.6 - 0.9 cm LVPW Systolic Thickness 2.7 cm LVOT Diameter 2.0 cm LV Ejection Fraction 2D Teich 55.0 % LV Ejection Fraction MOD 2C 53.1 % LV Ejection Fraction 2C AL 52.1 % LA Diameter 3.4 cm LA Width 4.1 cm LA Height 6.1 cm RA Width 4.2 cm RA Height 5.1 cm Aorta at Sinotubular Diameter 2.6 cm IVC Diameter 1.6 cm M-MODE Aortic Annulus Diameter 3.1 cm LA Ao Ratio MM 1.2 MV E Point Septal Separation 1.2 cm DOPPLER AV Peak Velocity 157.5 cm/s LVOT Peak Velocity 109.0 cm/s AV Area Cont Eq vti 2.3 cm squared AV Area Cont Eq pk 2.2 cm squared MV Peak Velocity 124.0 cm/s MV Area PHT 9.2 cm squared Mitral E to A Ratio 0.7 MV E' Velocity 33.5 cm/s Mitral E to MV E' Ratio 6.6 Mitral E to LV E' Lateral Ratio 8.9 Mitral E to LV E' Septal Ratio 5.2 TR Peak Velocity 218.3 cm/s TR Peak Gradient 19.1 mmHg TR Mean Velocity 171.2 cm/s TR Mean Gradient 12.5 mmHg TR Velocity Time Integral 55.7 cm Right Atrial Pressure 3.0 mmHg Pulmonary Artery Systolic Pressu 22.1 mmHg PV Peak Velocity 124.0 cm/s RV Acceleration Time 0.1 s RV Ejection Time 0.3 s RV AcT/ET 0.3 FINDINGS Left Ventricle Technically limited quality echocardiogram because of poor ultrasonic windows. LV systolic function is borderline normal with EF of 50 to 55%. No regional wall motion abnormalities are seen. Grade 1 diastolic dysfunction Right Ventricle Normal in size and function. Pacemaker wire is seen Right Atrium Normal in size Left Atrium Dilated Mitral Valve Grossly normal Mild mitral regurgitation. Aortic Valve Grossly normal. No significant stenosis or regurgitation. Tricuspid Valve Trace tricuspid regurgitation. Insufficient TR jet to calculate RVSP Pulmonic Valve Not well visualized Pericardium Normal Aorta Normal in size IVC Appears to be normal CONCLUSIONS Technically limited quality echocardiogram because of poor ultrasonic windows. LV systolic function is borderline normal with EF of 50-55% Grade 1 diastolic dysfunction Left atrial dilation Mild mitral regurgitation Trace tricuspid regurgitation Compared to prior echocardiogram from 2019, LV systolic function has decreased slightly Juan Kirkland MD (Electronically Signed) Final Date: 15 July 2022 23:16 S
== END 2022-07-12 07:50 | disposition home or self-care (01) ==
PROVIDERS: PCP Family Medicine; Visit Provider Internal Medicine Cardiovascular Disease
DX: D86.85 Sarcoid myocarditis (principal)
CPT/HCPCS: 93306

== ENCOUNTER 2022-07-29 06:29 | Outpatient (CLI) | payer OTHER, SELFPAY ==
[2022-07-29 07:00] VITALS: BMI 34.2
--- NOTE | 2022-07-29 07:05 | ECG_ITS ---
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 Interpretive Statements NAME OF STUDY: LEXISCAN SESTAMIBI STRESS TEST INDICATION: DEGROOT PROCEDURE: At the baseline, the EKG revealed 100% A sensed V paced rhythm. The baseline heart was 66 bpm with a blood pressue of 136/74 mm of Hg Lexiscan was infused over a period of 20 seconds. A total of 0.4 milligrams of Lexiscan was infused. The stress phase was continued for a total of 5 minutes. Heart rate at the end of the stress phase was 73 bpm with a blood pressure 170/79 mm of Hg. The EKG at the peak infusion revealed no significant changes. Sestamibi was injected 20 seconds after the Lexiscan infusion. Heart rate at the end of the recovery phase was 73 bpm with a blood pressure of 202/89 mm of Hg. CONCLUSION: 1. The EKG response to Lexiscan infusion is uninterpretable due to the pacing artifacts 2. No LexiScan induced chest pain or cardiac arrhythmia 3. Normal blood pressure and heart rate response 4. Sestamibi/sestamibi perfusion scan pending; see separate report. Electronically Signed On 08-01-2022 0:02:52 CDT by Robert France M.D. [email or web address]
--- NOTE | 2022-07-29 07:06 | NMCV_ITS ---
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 Images obtained in supine and prone position. SPECT RESULTS Technical Quality: Excellent Raw Data Analysis: Normal Image Corrections: No attenuation or motion correction applied Summed Stress Score: 6 Summed Rest Score: 13 Summed Difference Score: 0 PERFUSION FINDINGS Moderate area of moderately decreased tracer uptake was noted in the basal, mid and apical inferior and LV apex. No significant reversibility was noted in these regions. FUNCTIONAL RESULTS (calculated via Gated SPECT) Stress Image LV EF (%): 42 Stress EDV (mL):191 TID: 0.93 Stress ESV (mL):111 FUNCTIONAL FINDINGS: Segmental wall motion analysis revealed mild diffuse hypokinesia of the septum and the LV apex IMPRESSIONS 1. Myocardial perfusion imaging revealing moderate area of persistent decreased tracer uptake in the inferior wall and LV apex suggesting myocardial scarring in the distribution of the right coronary artery. 2. Diminished LV ejection fraction 42%. 3. Segmental wall motion analysis revealing diffuse hypokinesia of the septum and the LV apex. 4. Moderately dilated LV cavity with an end-systolic volume of 111 ml. Low probability for coronary ischemia, based on the above findings Dr Robert France MD FACC (Electronically Signed) Final Date: 29 July 2022 18:36 S
[2022-07-29] MEDS: regadenoson 0.4 Mg/5 ml Syringe IVP (09:21)
[2022-07-29 09:33] VITALS: BP 157/82; PULSE 73
== END 2022-07-29 06:30 | disposition home or self-care (01) ==
PROVIDERS: PCP Family Medicine; Visit Provider Nurse Practitioner Family
DX: R06.09 Other forms of dyspnea (principal); R07.9 Chest pain, unspecified
CPT/HCPCS: 36415; 78452; 93017; 96374; A9500; J2785

== ENCOUNTER 2024-09-12 10:47 | Outpatient (CLI) | payer OTHER, SELFPAY ==
--- NOTE | 2024-09-12 10:55 | CT_ITS ---
WS: [id number] CTA THORACIC TECHNIQUE: Contrast enhanced CTA of the thoracic aorta with coronal and sagittal reformatted images and maximum intensity projection (MIP) images. CLINICAL INFORMATION: ASCENDING AORTA ANEURYSM COMPARISON: None. DLP: 1034.[address] scans at [facility] use at least one of these dose optimization techniques: automated exposure control; mA and/or kV adjustment per patient size (includes targeted exams where dose is matched to clinical indication); or iterative reconstruction. FINDINGS: Stable mild ascending thoracic aortic aneurysm measuring 4.6 cm unchanged from previous. Proximal main pulmonary arteries are normal. No evidence of pulmonary embolus. Normal descending thoracic aorta. Enlarged LEFT heart. No acute pulmonary infiltrates. No mediastinal or hilar lymphadenopathy. Numerous normal sized mediastinal and hilar lymph nodes unchanged. A few tiny nodules in the RIGHT lower lobe unchanged. Fatty liver. Previously described sarah mesentery in the upper abdomen is unchanged. Thoracic kyphosis. Enlarged lymph nodes in the upper abdomen similar to previous. CT/CT angio chest 18590 IMPRESSION: 1. Stable ascending thoracic aortic aneurysm measuring 4.6 cm. 2. No evidence of pulmonary embolus. 3. No acute pulmonary infiltrates. 4. Sarah mesentery partially visualized in the upper abdomen with enlarged upp er abdominal lymph nodes. This is not significantly changed since 05/27/2022. 5. Sludge in the gallbladder. 6. Fatty liver.
[2024-09-12] MEDS: iohexol 350 mg/mL 500 mL Btl (per mL) IV (11:20)
== END 2024-09-12 10:48 | disposition home or self-care (01) ==
PROVIDERS: PCP Family Medicine; Visit Provider Family Medicine
DX: I71.21 Aneurysm of the ascending aorta, without rupture (principal); R59.0 Localized enlarged lymph nodes; R93.3 Abnormal findings on diagnostic imaging of other parts of digestive tract; K76.0 Fatty (change of) liver, not elsewhere classified; I51.7 Cardiomegaly; R93.5 Abnormal findings on diagnostic imaging of other abdominal regions, including retroperitoneum; M40.294 Other kyphosis, thoracic region
CPT/HCPCS: 71275

== ENCOUNTER 2024-11-13 14:10 | Outpatient (CLI) | payer OTHER, SELFPAY ==
--- NOTE | 2024-11-13 14:16 | CT_ITS ---
WS: [id number] CT ABDOMEN AND PELVIS WITH CONTRAST HISTORY: ABDOMINAL LYMPHADENOPATHY/ENLARGED LYMPH NODES TECHNIQUE: Imaging performed of the abdomen and pelvis with IV contrast. Single phase imaging of the abdomen. Coronal and sagittal reformats are submitted. All CT scans at [facility] use at least one of these dose optimization techniques: automated exposure control; mA and/or kV adjustment per patient size (includes targeted exams where dose is matched to clinical indication); or iterative reconstruction. IV CONTRAST: Omnipaque 350; 100 mL IV. Oral contrast: No DLP: 926.84 mGy.cm COMPARISON: CTA 09/12/2024, CT abdomen 05/27/2022 Lower thorax: Lung bases are clear. Heart is normal size. Small hiatal hernia. Liver/biliary system: Normal liver with hepatic steatosis. No intrahepatic duct dilatation. Normal portal vein. Gallbladder: Contracted gallbladder with increased attenuation centrally consistent with stones, similar to 05/27/2022. Pancreas: Normal size pancreas and pancreatic duct. No adjacent inflammation. Spleen: Normal size spleen. No mass or infarct. Adrenal glands: Normal. Right kidney: Normal size kidney with nonobstructing calcifications. Exophytic cyst 1.7 cm lower pole. Left kidney: Mild perinephric stranding. Nonobstructing central calcifications. Aorta: Normal. Lymphadenopathy: Numerous gastrohepatic and celiac axis lymph nodes are identified. These lymph nodes were present on 05/27/2022 and have not changed significantly in size. The largest measures 1.7 cm and contains a central calcification. Additional very small scattered mesenteric lymph nodes centrally surrounded by mesenteric stranding. Free fluid: None. GI tract: Normal stomach. No small bowel obstruction. Mild diffuse constipation. Normal appendix. Mild diverticular burden without acute diverticulitis. Abdominal wall: Unremarkable abdominal wall. No hernia. Pelvis: No free fluid or adenopathy within the pelvis. Patent bilateral inguinal canals contain fat only. Negative urinary bladder. No adenopathy. Bones: Mild increase in lumbar lordosis. No destructive bone lesions. CT/CT abdomen pelvis w con* [id number] IMPRESSION: 1. Stable mesenteric lymphadenopathy centered around the celiac axis and gastr ohepatic ligament. No change since 05/27/2022. The largest lymph node is 1.7 cm. Lymph nodes associated with sarah mesentery. These are nonspecific findings nia t can be noted with cirrhosis, portal hypertension, heart failure, prior perito nitis or very low risk of malignancy such as lymphoma. 2. Contracted gallbladder with cholelithiasis. 3. No renal obstruction. Bilateral nonobstructing calcifications. 4. Hepatic steatosis.
[2024-11-13 15:03] LABS: Blood Urea Nitrogen 14 mg/dL (8-23); Glomerular Filtration Rate 66.8 mL/min (90-130)
[2024-11-13] MEDS: iohexol 350 mg/mL 500 mL Btl (per mL) IV (15:11)
== END 2024-11-13 14:11 | disposition home or self-care (01) ==
LOC: RAD 14:10
PROVIDERS: PCP Family Medicine; Visit Provider Family Medicine
DX: R59.0 Localized enlarged lymph nodes (principal); K76.0 Fatty (change of) liver, not elsewhere classified; K44.9 Diaphragmatic hernia without obstruction or gangrene; R93.3 Abnormal findings on diagnostic imaging of other parts of digestive tract; N28.89 Other specified disorders of kidney and ureter; N28.1 Cyst of kidney, acquired; K59.00 Constipation, unspecified; K57.30 Diverticulosis of large intestine without perforation or abscess without bleeding; R93.7 Abnormal findings on diagnostic imaging of other parts of musculoskeletal system
CPT/HCPCS: 74177; 82565; 84520